=== PATIENT | female | born 1955 | race American Indian/Alaskan Native ===

== ENCOUNTER 2017-07-05 13:04 | Emergency (ER) | payer OTHER ==
[2017-07-05 14:09] VITALS: BP 199/60
[2017-07-05 15:50] LABS: Hematocrit 38.9 % (30.3-42.9); Hemoglobin 12.2 gm/dl (10.1-14.3); Mean Corpuscular HGB Conc 31 % (30-34); Mean Corpuscular Hemoglobin 29 pg (28-32); Mean Corpuscular Volume 91 fl (79-97); Platelet Count 274 K/mm3 (140-440); Red Blood Count 4.26 M/mm3 (3.65-5.03); Red Cell Distribution Width 16.6 % (13.2-15.2)
[2017-07-05 16:00] LABS: INR 0.9 (0.87-1.13); Partial Thromboplastin Time 25.6 Sec. (24.2-36.6)
--- NOTE | 2017-07-07 07:48 | Vascular Lab Report ---
Right Lower Extremity Venous Duplex Study: Reason for Exam: Pain and swelling of the right lower extremity. Comments on the Right: All veins visualized are freely compressible without evidence of internal echogenicity. Flow is spontaneous and phasic throughout. No evidence of acute or chronic thrombus is seen in any of the vessels visualized. Soft tissue density is consistent with tissue edema Comments on the Left: A limited duplex study was done of the proximal veins of the left lower extremity. All veins visualized are freely compressible without evidence of internal echogenicity. Flow is spontaneous and phasic throughout. No evidence of acute or chronic thrombus is seen in any of the vessels visualized. Impression: No evidence of acute or chronic deep venous thrombosis in the right lower extremity.
== END 2017-07-05 15:40 | disposition left against medical advice (07) ==
LOC: ED 13:04
DX: M25.461 Effusion, right knee (principal); Z53.21 Procedure and treatment not carried out due to patient leaving prior to being seen by health care provider
CPT/HCPCS: 36415; 85027; 85610; 85730

== ENCOUNTER 2018-04-29 21:12 | Emergency (ER) | payer SELFPAY ==
[2018-04-29] MEDS ORDERED: TYLENOL PO ONE (21:52)
[2018-04-29] MEDS ORDERED: TYLENOL ONE (21:53)
[2018-04-29 22:31] LABS: Hematocrit 37.2 % (30.3-42.9); Hemoglobin 12.3 gm/dl (10.1-14.3); Mean Corpuscular HGB Conc 33 % (30-34); Mean Corpuscular Hemoglobin 29 pg (28-32); Mean Corpuscular Volume 87 fl (79-97); Platelet Count 229 K/mm3 (140-440); Red Blood Count 4.26 M/mm3 (3.65-5.03); Red Cell Distribution Width 15.7 % (13.2-15.2)
[2018-04-29 22:41] LABS: Calcium 9.2 mg/dL (8.4-10.2)
[2018-04-29 23:42] LABS: Bacteria,Urine 2+ /HPF (Negative); Bilirubin,Urine NEG (Negative); Blood,Urine MOD (Negative); Color,Urine Yellow (Yellow); Mucus,Urine FEW /HPF; Urobilinogen,Urine < 2.0 mg/dL (<2.0)
[2018-04-29 23:45] LABS: WBC,Urine > 182.0 /HPF (0.0-6.0)
--- NOTE | 2018-04-30 00:47 | Emergency Department Report ---
ED Female HPI - General Chief complaint: Fever Stated complaint: BODY CHILLS, HEADACHE Time Seen by Provider: 04/30/18 00:41 Source: patient Mode of arrival: Ambulatory Limitations: No Limitations - History of Present Illness Initial comments: Extremity 2-year-old female comes to the emergency room for onset of crampy stomach this afternoon. Patient complains of chills and fever. Patient denies any nausea vomiting or diarrhea. She feels that she may have a sinus infection since she's been suffering from sinus drainage and thick mucus that is greenish for the last 3 weeks. Patient reports she has had past medical history of hypertension and renal disease. MD Complaint: dysuria -: week(s) (3 sinus issues), This afternoon, This evening (abdominal cramping) Radiation: suprapubic Severity: moderate Severity scale (0 -10): 5 Quality: cramping Consistency: intermittent Worsens with: urination Are you Now?: No - Related Data Previous Rx's Medication Instructions Recorded Last Taken Type Doxycycline [Vibramycin CAP] 100 mg PO Q12HR #20 capsule 04/30/18 Unknown Rx Nitrofurantoin Rawlins/M-Cryst 100 mg PO Q12HR #20 capsule 04/30/18 Unknown Rx [Macrobid CAP] Allergies Allergy/AdvReac Type Severity Reaction Status Date / Time Penicillins Allergy Hives Verified 07/05/17 14:10 Sulfa (Sulfonamide Allergy Hives Verified 07/05/17 14:10 Antibiotics) lisinopril AdvReac Unknown Verified 07/05/17 14:10 ED Review of Systems ROS: Stated complaint: BODY CHILLS, HEADACHE Other details as noted in HPI Constitutional: chills, diaphoresis Eyes: denies: eye pain, eye discharge, vision change ENT: congestion (nasal congestion), other (sinus pain). denies: throat pain Gastrointestinal: abdominal pain (suprapubic) Genitourinary: urgency, frequency. denies: dysuria, discharge Musculoskeletal: denies: back pain, joint swelling, arthralgia Skin: denies: rash, lesions Neurological: headache Psychiatric: denies: anxiety, depression ED Past Medical Hx - Past Medical History Hx Hypertension: Yes Hx Renal Disease: Yes Additional medical history: pneumonia,elevated cholesterol - Surgical History Additional Surgical History: hemorrhoidecty,tubil ligation - Social History Smoking Status: Never Smoker Substance Use Type: None - Medications Home Medications: Home Medications Medication Instructions Recorded Confirmed Last Taken Type Doxycycline [Vibramycin CAP] 100 mg PO Q12HR #20 capsule 04/30/18 Unknown Rx Nitrofurantoin Rawlins/M-Cryst 100 mg PO Q12HR #20 capsule 04/30/18 Unknown Rx [Macrobid CAP] ED Physical Exam - General Limitations: No Limitations General appearance: alert, in no apparent distress - Head Head exam: Present: atraumatic, normocephalic - Eye Eye exam: Present: EOMI - ENT ENT exam: Present: mucous membranes moist, TM's normal bilaterally - Neck Neck exam: Present: normal inspection, full ROM. Absent: lymphadenopathy - Respiratory Respiratory exam: Present: normal lung sounds bilaterally. Absent: respiratory distress - Cardiovascular Cardiovascular Exam: Present: regular rate, normal rhythm. Absent: systolic murmur, diastolic murmur, rubs, gallop - GI/Abdominal GI/Abdominal exam: Present: soft, normal bowel sounds. Absent: distended, tenderness - Extremities Exam Extremities exam: Present: normal inspection - Back Exam Back exam: Present: normal inspection - Neurological Exam Neurological exam: Present: alert, oriented X3 - Psychiatric Psychiatric exam: Present: normal affect, normal mood - Skin Skin exam: Present: warm, dry, intact, normal color. Absent: rash ED Course Vital Signs 04/29/18 04/29/18 04/29/18 21:42 21:54 22:54 Temperature 102.5 F H Pulse Rate 93 H Respiratory 18 18 20 Rate Blood Pressure 134/83 O2 Sat by Pulse 94 Oximetry 04/29/18 23:19 Temperature Pulse Rate Respiratory 20 Rate Blood Pressure O2 Sat by Pulse 98 Oximetry ED Medical Decision Making - Lab Data Result diagrams: 04/29/18 22:16 04/29/18 22:16 - Medical Decision Making Patient has been evaluated by this provider fast track. CBC CMP urinalysis ordered Urinalysis shows the patient has greater than 182 WBCs. Serum WBCs within normal limits Would treat patient for urinary tract infection. Patient was given 1 g of Tylenol in triage. Patient does have a past medical history of renal disease. Will discharge patient on Macrobid for urinary symptoms UTI as well as doxycycline 100 mg twice a day for sinusitis. Patient is to follow-up with her primary care provider if symptoms persist or gets worse. Patient verbalized understanding Critical care attestation.: If time is entered above; I have spent that time in minutes in the direct care of this critically ill patient, excluding procedure time. ED Disposition Clinical Impression: UTI (urinary tract infection) Qualifiers: Urinary tract infection type: acute cystitis Hematuria presence: without hematuria Qualified Code(s): N30.00 - Acute cystitis without hematuria Sinusitis, acute Qualifiers: Sinusitis location: unspecified location Recurrence: not specified as recurrent Qualified Code(s): J01.90 - Acute sinusitis, unspecified Disposition: TO HOME OR SELFCARE Is pt being admited?: No Does the pt Need Aspirin: No Condition: Stable Instructions: Sinusitis (ED), Urinary Tract Infection in Women (ED) Additional Instructions: Please complete antibiotics as prescribed. Please increase her water intake by 2 L a day. If her symptoms persist or gets worse please follow up with her primary care provider. Prescriptions: Doxycycline [Vibramycin CAP] 100 mg PO Q12HR #20 capsule Nitrofurantoin Rawlins/M-Cryst [Macrobid CAP] 100 mg PO Q12HR #20 capsule Referrals: PRIMARY CARE, [Primary Care Provider] - 3-5 Days [facility] [Outside] - 3-5 Days Forms: Work/School Release Form(ED), Accompanied Note
[2018-04-30] MEDS ORDERED: VIBRAMYCIN PO ONE (01:17)
[2018-04-30] MEDS ORDERED: MACROBID PO ONE (01:17)
[2018-04-30 02:10] VITALS: BP 112/70
== END 2018-04-30 02:10 | disposition home or self-care (01) ==
LOC: ED 21:12
DX: J34.89 Other specified disorders of nose and nasal sinuses (principal); N30.00 Acute cystitis without hematuria; J01.90 Acute sinusitis, unspecified; I10 Essential (primary) hypertension; E78.00 Pure hypercholesterolemia, unspecified; Z98.51 Tubal ligation status; Z88.0 Allergy status to penicillin; Z88.2 Allergy status to sulfonamides; Z88.6 Allergy status to analgesic agent
CPT/HCPCS: 36415; 80048; 81001; 85027; 99283